=== PATIENT | female | born 1970 | race Hispanic/Latino ===

== ENCOUNTER 2018-03-23 11:03 | Emergency (ER) | payer BC ==
[~2018-03-23] VITALS: Ht 162.6 cm; Wt 83.9 kg
--- NOTE | 2018-03-24 07:52 | EKG ---
[facility] [address] [place], [place] [address] Signed Normal sinus rhythm Normal ECG No previous ECGs available Confirmed by JASON CALIX MD ([id number]) on 03/24/2018 7:52:18 AM Electronically Signed By: JASON CALIX MD 03/24/18 0752 PATIENT NAME: [place] EMMY GARCIAS Electrocardiogram DATE OF : 68 PHYSICIAN: JASON CALIX MD REPORT #: [id number] REPORT IS CONFIDENTIAL AND NOT TO BE RELEASED WITHOUT AUTHORIZATION
== END 2018-03-23 13:04 | disposition home or self-care (01) ==
LOC: ED 11:03
DX: R55 Syncope and collapse (principal); D64.9 Anemia, unspecified
CPT/HCPCS: 80053; 81001; 84703; 85025; 93005; 93010; 99284-25